=== PATIENT | male | born 1960 | race Caucasian/White ===

== ENCOUNTER 2023-09-14 08:10 | Outpatient (CLI) | payer OTHER, SELFPAY | END 2023-09-14 08:11 | disposition home or self-care (01) | LOC: NFLDREF 09-17 17:37 | PROVIDERS: PCP Family Medicine; Referring Provider Family Medicine; Visit Provider Family Medicine | DX: Z00.00 Encounter for general adult medical examination without abnormal findings (principal); E78.00 Pure hypercholesterolemia, unspecified; N52.9 Male erectile dysfunction, unspecified; Z12.5 Encounter for screening for malignant neoplasm of prostate | CPT/HCPCS: 80053; 80061; 84153 ==

== ENCOUNTER 2023-09-20 08:00 | Outpatient (CLI) | payer OTHER, SELFPAY ==
--- NOTE | 2023-09-20 08:15 | CRLHL7_ITS ---
For Patients: As a result of the Century Cures Act, medical imaging exams and procedure reports are released immediately into your electronic medical record. You may view this report before your referring provider. If you have questions, please contact your health care provider. INDICATION: Elevated LFTs COMPARISON: none TECHNIQUE: Real time foster scale imaging and color Doppler analysis was performed of the right upper quadrant. FINDINGS: The patient`s liver is of normal size and a mildly coarsened echogenicity. No intrahepatic mass. There is a normal appearance of the hepatic IVC and proximal abdominal aorta. There is no evidence of ascites. The gallbladder is of normal size and there are multiple echogenic and shadowing stones throughout the gallbladder. The gallbladder wall measures 3.7 mm in thickness. The common bile duct is of normal size and measures 4.7 mm in diameter at the level of the rico hepatis. The pancreas appears normal. There is no evidence of a stone or hydronephrosis within the right kidney. The right kidney measures 10.4 cm in length. IMPRESSION: Multiple gallstones present within the gallbladder lumen with associated gallbladder sludge. Mild gallbladder wall thickening and incomplete gallbladder distention suggesting chronic cholecystitis. Surgical referral suggested. Dictated by Fredy Joseph MD @ 09/20/2023 8:48:16 AM (Electronically Signed)
== END 2023-09-20 08:01 | disposition home or self-care (01) ==
LOC: US 08:01
PROVIDERS: PCP Family Medicine; Visit Provider Family Medicine
DX: R79.89 Other specified abnormal findings of blood chemistry (principal); K80.20 Calculus of gallbladder without cholecystitis without obstruction
CPT/HCPCS: 76705

== ENCOUNTER 2024-03-06 06:20 | Outpatient (CLI) | payer OTHER, SELFPAY ==
--- NOTE | 2024-03-06 07:52 | W.ANESCHARGE ---
Anesthesia Charges Start Date/Time Anesthesia Start Date: 03/06/24 Anesthesia Start Time: 07:15 Stop Date/Time Anesthesia Stop Date: 03/06/24 Anesthesia Stop Time: 07:51
--- NOTE | 2024-03-06 10:36 | W.ANESCHARGE ---
Anesthesia Charges Start Date/Time Anesthesia Start Date: 03/06/24 Anesthesia Start Time: 07:15 Stop Date/Time Anesthesia Stop Date: 03/06/24 Anesthesia Stop Time: 07:51
== END 2024-03-06 06:21 | disposition home or self-care (01) ==
LOC: OP CLINIC 06:21
PROVIDERS: PCP Family Medicine; Visit Provider Surgery
DX: Z12.11 Encounter for screening for malignant neoplasm of colon (principal); Z83.719 Family history of colon polyps, unspecified; R13.10 Dysphagia, unspecified; K22.89 Other specified disease of esophagus; K21.00 Gastro-esophageal reflux disease with esophagitis, without bleeding
CPT/HCPCS: 00813; 43239; 45378; 88305; 88341; 88342; J2704

== ENCOUNTER 2024-09-16 08:22 | Outpatient (CLI) | payer OTHER, SELFPAY | END 2024-09-16 08:23 | disposition home or self-care (01) | LOC: NFLDREF 09-17 11:31 | PROVIDERS: PCP Family Medicine; Referring Provider Family Medicine; Visit Provider Family Medicine | DX: Z00.00 Encounter for general adult medical examination without abnormal findings (principal); R79.89 Other specified abnormal findings of blood chemistry; E78.00 Pure hypercholesterolemia, unspecified; K50.00 Crohn's disease of small intestine without complications; Z12.5 Encounter for screening for malignant neoplasm of prostate | CPT/HCPCS: 80053; 80061; G0103 ==

== ENCOUNTER 2025-03-31 13:50 | Outpatient (CLI) | payer BC, SELFPAY | END 2025-03-31 13:51 | disposition home or self-care (01) | LOC: INJ CL 13:52 | PROVIDERS: PCP Family Medicine; Visit Provider Family Medicine | DX: M54.16 Radiculopathy, lumbar region (principal); M48.062 Spinal stenosis, lumbar region with neurogenic claudication; M51.369 Other intervertebral disc degeneration, lumbar region without mention of lumbar back pain or lower extremity pain | CPT/HCPCS: 62323; J0702; Q9966 ==

== ENCOUNTER 2025-04-28 09:15 | Outpatient (CLI) | payer BC, SELFPAY | END 2025-04-28 09:16 | disposition home or self-care (01) | PROVIDERS: PCP Family Medicine; Visit Provider Family Medicine | DX: M54.16 Radiculopathy, lumbar region (principal); M51.369 Other intervertebral disc degeneration, lumbar region without mention of lumbar back pain or lower extremity pain | CPT/HCPCS: 64483; J1100; Q9966 ==

== ENCOUNTER 2025-06-16 08:17 | Outpatient (CLI) | payer BC, SELFPAY ==
--- NOTE | 2025-06-16 08:15 | CRLHL7_ITS ---
For Patients: As a result of the 21st Century Cures Act, medical imaging exams and procedure reports are released immediately into your electronic medical record. You may view this report before your referring provider. If you have questions, please contact your health care provider. Indication: Lumbar spinal stenosis Technique: Multiplanar, multisequence, MRI of the lumbar spine, obtained without contrast. Comparison: MRI lumbar spine 07/26/2018 Findings: Preserved lumbar lordosis. Grade 1 anterolisthesis at L3-4, retrolisthesis at L4-5, anterolisthesis at L5-S1. Chronic bilateral L5 spondylolysis. Trace interspinous bursitis at L3-4 and L4-5. Mixed Modic type 1/Modic type 2 opposing endplate changes at L4-5 and L5-S1. Remote right hemilaminotomy changes at L5-S1. Conus medullaris terminates at L1-2. Small right renal cysts. Unremarkable included SI joints. T12-L1: Mild disc bulge, mild facet arthropathy. No neural foraminal or spinal canal stenosis. L1-L2: Mild left facet arthropathy. No neural foraminal or spinal canal stenosis. L2-L3: Mild diffuse disc bulge, mild left facet arthropathy. No neural foraminal stenosis. Mild spinal canal narrowing. L3-L4: Disc unroofing/diffuse bulge, central protrusion and annular fissure, moderately advanced facet arthropathy with ligamentum flavum laxity. Severe spinal canal stenosis with likely impingement of the descending L4 nerve roots along both lateral recesses, progressed from 2018. Mild left and moderate right neural foraminal stenosis, stable. L4-L5: Diffuse right eccentric disc-osteophyte complex, facet arthropathy. Mild-moderate left, severe right neural foraminal stenosis, progressed. No spinal canal stenosis. L5-S1: Left eccentric disc-osteophyte complex, left asymmetric facet arthropathy. Moderate right and severe left neural foraminal stenosis, stable. No spinal canal stenosis. Impression: 1. Lumbar spondylosis, with chronic bilateral L5 spondylolysis and multilevel spondylolisthesis as detailed. 2. At L3-L4, severe spinal canal stenosis and likely bilateral L4 nerve root impingement along both lateral recesses, progressed relative to 2018. Moderate right neural foraminal stenosis appears similar over the interval. 3. At L4-L5, mild-moderate left neural foraminal narrowing and severe right neural foraminal stenosis with right L4 nerve root impingement, progressed. 4. At L5-S1, moderate right and severe left neural foraminal stenosis with left L5 nerve root impingement, similar. Dictated by Kae Mario MD @ 06/16/2025 3:24:19 PM (Electronically Signed)
--- NOTE | 2025-06-16 09:00 | CRLHL7_ITS ---
For Patients: As a result of the Century Cures Act, medical imaging exams and procedure reports are released immediately into your electronic medical record. You may view this report before your referring provider. If you have questions, please contact your health care provider. INDICATION: Lumbar stenosis TECHNIQUE: Lumbar spine radiograph 4 views COMPARISON: 06/16/2025, 07/26/2018 FINDINGS: Bone: No acute fractures or aggressive bone lesions are identified. Grade 1 anterolisthesis of L3-4 and L5-S1 are noted. Disc: Moderate degenerative disc disease is present at L3-4. Severe degenerative disc disease is seen at L4-5 and L5-S1. Severe bilateral facet osteoarthritis is present from L3-4 to L5-S1. Soft tissue: Unremarkable. No radiopaque foreign bodies are seen. IMPRESSION: 1. Moderate degenerative disc disease is present at L3-4. Severe degenerative disc disease is seen at L4-5 and L5-S1. The overall appearance is similar to prior MRI. Dictated by Wiley Alvarez MD @ 06/18/2025 1:01:21 PM Dictated by: Wiley Alvarez MD @ 06/18/2025 13:01:25 (Electronically Signed)
== END 2025-06-16 08:18 | disposition home or self-care (01) ==
LOC: MRI 08:18
PROVIDERS: PCP Family Medicine; Visit Provider Orthopaedic Surgery Orthopaedic Surgery of the Spine
DX: M48.062 Spinal stenosis, lumbar region with neurogenic claudication (principal); M47.896 Other spondylosis, lumbar region; M48.061 Spinal stenosis, lumbar region without neurogenic claudication; M51.369 Other intervertebral disc degeneration, lumbar region without mention of lumbar back pain or lower extremity pain
CPT/HCPCS: 72110; 72148

== ENCOUNTER 2025-07-14 08:10 | Outpatient (CLI) | payer BC, SELFPAY | END 2025-07-14 08:11 | disposition home or self-care (01) | LOC: LKVREF 08:11 | PROVIDERS: PCP Family Medicine; Visit Provider Family Medicine | DX: Z01.818 Encounter for other preprocedural examination (principal); E78.00 Pure hypercholesterolemia, unspecified; R79.89 Other specified abnormal findings of blood chemistry | CPT/HCPCS: 80053; 80061 ==